=== PATIENT | male | born 1965 | race Caucasian/White ===

== ENCOUNTER 2025-04-06 15:48 | Emergency (ER) | payer MEDICARE, MEDICAID, SELFPAY ==
--- NOTE | ~2025-04-06 | US_ITS ---
US right upper quadrant Indication: pancreatitis Comparison: None Technique: Mtz-scale and color Doppler images were obtained. Findings: LIVER: Mild increased echogenicity of the liver. . GALLBLADDER/BILIARY: Unremarkable.No cholelithiais, wall thickening or pericholecystic fluid. No biliary dilatation. CBD 3.1 mm. [place] sign negative. PANCREAS: Pancreas limited by bowel gas. Right Kidney: Right kidney was not imaged. Impression: Mild hepatic steatosis. Pancreas not well visualized Reviewed, dictated and finalized at location P. Impression: Mild hepatic steatosis. Pancreas not well visualized
--- NOTE | ~2025-04-06 | XR_ITS ---
XR chest 2V HOSTORY: chest pain COMPARISON:[ None] FINDINGS: Frontal and lateral views of the chest were obtained. The lungs are clear. The heart size is normal in size. Pulmonary vasculature is unremarkable. Osseous structures are intact. IMPRESSION: No acute lung findings.] [ ] Reviewed, dictated and finalized at location S.
--- NOTE | 2025-04-06 15:49 | ECG_ITS ---
Test Date: 2025-04-06 15:52:31 Measurements Intervals [place] Rate: 83 P: 66 PA: 133 QRS: 57 QRSD: 149 T: 36 QT: 394 QTc: 465 Interpretive Statements SINUS RHYTHM RIGHT BUNDLE BRANCH BLOCK BASELINE ARTIFACT- I, II, III, AVR, AVL ABNORMAL ECG No previous ECG available for comparison Electronically Signed On 04-06-2025 15:54:31 CDT by Raul Medina D.O.
[2025-04-06 16:04] VITALS: BP 128/82; PULSE 81; RESP 17; TEMP 36.7; O2SAT 98
[2025-04-06 16:31] LABS: Alanine Aminotransferase 32 U/L (6-50); Albumin Level 4.8 g/dL (3.5-5.1); Alkaline Phosphatase 62 U/L (38-126); Anion Gap 10 mmol/L (4-12); Aspartate Amino Transferase 33 U/L (17-59); Bilirubin,Total 0.7 mg/dL (0.2-1.3); Blood Urea Nitrogen 16 mg/dL (9-20); Calcium 9.2 mg/dL (8.4-10.2); Carbon Dioxide 22 mmol/L (22-30); Chloride 102 mmol/L (98-107); Estimated CRCL calculation 133 ml/min; Estimated Glomerular Filt Rate > 60; Glucose 83 mg/dL (65-110); Lipase 1486 U/L (23-300); Potassium 3.9 mmol/L (3.4-5.0); Sodium 134 mmol/L (137-145); Total Protein 8.2 g/dL (6.3-8.2)
[2025-04-06 16:42] LABS: Troponin I < 0.012 ng/mL (0.000-0.034)
[2025-04-06 16:51] VITALS: PULSE 84
[2025-04-06] MEDS: IPRATROPIUM 0.5 MG/ALBUTEROL SULFATE 2.5 MG (BASE) AMPUL.NEB 3 ML INHALATION (17:17)
[2025-04-06 17:19] VITALS: PULSE 86; RESP 19
[2025-04-06 17:23] VITALS: BP 109/86; PULSE 81; RESP 14; O2SAT 97
[2025-04-06 17:24] VITALS: PULSE 84; RESP 19
[2025-04-06 17:28] LABS: Hematocrit 42.5 % (42.0-52.0); Hemoglobin 14.3 g/dL (14.0-18.0); Immature Granulocyte Percent A 0.2 % (0-0.5); Lymphocytes Absolute Auto 2.67 K/mm3 (0.9-3.2); Mean Corpuscular HGB Conc 33.6 g/dl (32-36); Mean Corpuscular Hemoglobin 32.4 pg (26-34); Mean Corpuscular Volume 96.2 fl (80-100); Nucleated Red Blood Cells Absolute Auto 0.000 K/mm3 (0.0-0.012); Nucleated Red Blood Cells Perc 0.0 % (0.0-0.2); Platelet Count Result 226 k/mm3 (150-375); Red Blood Count 4.42 M/mm3 (4.6-6.20); White Blood Count 8.5 K/mm3 (4.5-10.0)
[2025-04-06 17:39] LABS: INR 0.9; Partial Thromboplastin Time 22.9 Seconds (22.3-36.8); Prothrombin Time 12.8 Seconds (11.1-14.7)
--- NOTE | 2025-04-06 18:39 | ECG_ITS ---
Test Date: 2025-04-06 18:51:31 Measurements Intervals [place] Rate: 71 P: 65 NC: 138 QRS: 72 QRSD: 145 T: 32 QT: 413 QTc: 451 Interpretive Statements SINUS RHYTHM RIGHT BUNDLE BRANCH BLOCK BASELINE ARTIFACT- I, II, AVR ABNORMAL ECG Compared to ECG 04/06/2025 15:52:31 No significant changes Electronically Signed On 04-07-2025 05:08:05 CDT by Raul Medina D.O.
--- NOTE | 2025-04-06 19:08 | ED_ITS ---
HPI - General Adult General Chief complaint: Chest Pain Stated complaint: chest/jaw pain Time Seen by Provider: 04/06/25 16:44 History of Present Illness HPI narrative: Patient is a 59-year-old male who presents ER with reports of chest pain and tightness. Sudden onset while he was getting shoulder injections. The he thought he might be in atrial fibrillation again so he came to the ER. [place] mild radiation to the shoulder/jaw. No fevers or chills sweats. No exertional dyspnea. He does have history of COPD and has nebulizer at home feels like he may need treatment. No productive cough. No history of OK. Related Data Allergies Allergy/AdvReac Type Severity Reaction Status Date / Time No Known Allergies Allergy Verified 04/06/25 16:06 Review of Systems 2 Review of Systems: All systems reviewed & are unremarkable except as noted in HPI and below Constitutional: Constitutional: Reports no additional constitutional complaints ENT: Reports system reviewed and no additional complaints, except as documented Cardiovascular: Cardiovascular: Reports no additional cardiovascular complaints Respiratory: Respiratory: Reports no additional respiratory complaints Gastrointestinal: Gastrointestinal: Reports no additional gastrointestinal complaints Musculoskeletal: Musculoskeletal: Reports no additional musculoskeletal complaints [facility] Past Medical History Medical History (Updated 04/06/25 @ 20:16 by Jarred Hardy MD) Atrial fibrillation COPD (chronic obstructive pulmonary disease) Exam 2 Narrative: GENERAL: Well-appearing, well-nourished, and in no acute distress. HEAD: Normocephalic, atraumatic. EYES: PERRL and EOMI. ENT: Mucous membranes moist. CHEST: Clear to auscultation. No respiratory distress. HEART: Regular rate and rhythm. Normal peripheral pulses. ABDOMEN: Soft, nontender, nondistended. EXTREMITIES: Normal range of motion. No edema. SKIN: Warm, dry, no rash. NEURO: Alert and oriented x3. PSYCH: Normal mood and affect. Course Course Emergency Course: Patient with elevated lipase. He has no epigastric pain is had no pain with eating or drinking today. He has had no nausea vomiting. He denies alcohol use. He does feel improved in his chest after receiving a nebulizer treatment. His lungs are now clear. I have discussed pancreatitis and possible hospitalization. Because he is having no pain and no vomiting and does not wish to stay I think it is reasonable for him to go home. We have discussed a clear liquid diet over the next couple days as well as return precautions including pain, vomiting, and fever. Vital Signs Vital signs: Vital Signs Temperature 98.1 F 04/06/25 16:04 Pulse Rate 81 04/06/25 16:04 Respiratory Rate 17 04/06/25 16:04 Blood Pressure 128/82 04/06/25 16:04 Pulse Oximetry 98 04/06/25 16:04 Temperature 98.1 F 04/06/25 16:04 Pulse Rate 84 04/06/25 17:24 Respiratory Rate 19 04/06/25 17:24 Blood Pressure 109/86 04/06/25 17:23 Pulse Oximetry 97 04/06/25 17:23 Medical Decision Making Vital Signs Vital Signs: Vital Signs Temperature 98.1 F 04/06/25 16:04 Pulse Rate 81 04/06/25 16:04 Respiratory Rate 17 04/06/25 16:04 Blood Pressure 128/82 04/06/25 16:04 Pulse Oximetry 98 04/06/25 16:04 Temperature 98.1 F 04/06/25 16:04 Pulse Rate 84 04/06/25 17:24 Respiratory Rate 19 04/06/25 17:24 Blood Pressure 109/86 04/06/25 17:23 Pulse Oximetry 97 04/06/25 17:23 Lab Data Lab results reviewed: Yes I reviewed the patient's lab results. 04/06/25 17:21 04/06/25 16:03 Labs: Lab Results 04/06/25 04/06/25 04/06/25 Range/Units 16:03 17:21 18:47 WBC 8.5 (4.5-10.0) K/mm3 RBC 4.42 L (4.6-6.20) M/mm3 Hgb 14.3 (14.0-18.0) g/dL Hct 42.5 (42.0-52.0) % MCV 96.2 (80-100) fl MCH 32.4 (26-34) pg MCHC 33.6 (32-36) g/dl RDW 12.3 (11.5-14.5) % Plt Count 226 (150-375) k/mm3 MPV 8.9 (7.4-10.4) fl Immature Gran % (Auto) 0.2 (0-0.5) % Neut % (Auto) 58.2 (45.5-73.1) % Lymph % (Auto) 31.4 (18.3-44.2) % [place] % (Auto) 8.7 H (2.6-8.5) % Eos % (Auto) 0.9 (0-4.4) % Baso % (Auto) 0.6 (0.2-1.2) % Lymph # (Auto) 2.67 (0.9-3.2) K/mm3 [place] # (Auto) 0.7 H (0.1-0.6) K/mm3 Eos # (Auto) 0.1 (0-0.3) K/mm3 Baso # (Auto) 0.1 (0.0-0.1) K/mm3 Abs Immat Gran (auto) 0.02 (0.00-0.031) K/mm3 Absolute Neuts (auto) 4.9 (1.3-6.7) K/mm3 Absolute Nucleated RBC 0.000 (0.0-0.012) K/mm3 Nucleated RBC % 0.0 (0.0-0.2) % PT 12.8 (11.1-14.7) Seconds INR 0.9 APTT 22.9 (22.3-36.8) Seconds Sodium 134 L (137-145) mmol/L Potassium 3.9 (3.4-5.0) mmol/L Chloride 102 (98-107) mmol/L Carbon Dioxide 22 (22-30) mmol/L Anion Gap 10 (4-12) mmol/L BUN 16 (9-20) mg/dL Creatinine 0.62 L (0.7-1.3) mg/dL Estim Creat Clear Calc 133 ml/min Estimated GFR > 60 (59 - ) Glucose 83 (65-110) mg/dL Calcium 9.2 (8.4-10.2) mg/dL Total Bilirubin 0.7 (0.2-1.3) mg/dL AST 33 (17-59) U/L ALT 32 (6-50) U/L Alkaline Phosphatase 62 (38-126) U/L Troponin I < 0.012 < 0.012 (0.000-0.034) ng/mL Total Protein 8.2 (6.3-8.2) g/dL Albumin 4.8 (3.5-5.1) g/dL Lipase 1486 H (23-300) U/L Imaging Data Radiologist's impression: ITS Impressions Chest X-Ray 04/06/25 16:24 IMPRESSION: No acute lung findings.] [ ] Upper Quadrant Ultrasound 04/06/25 17:38 Impression: Mild hepatic steatosis. Pancreas not well visualized ECG Data EKG #1: Attestation: I personally reviewed and interpreted this ECG as follows: ECG completion date: 04/06/25 ECG completion time: 18:51 EKG Interpretation: normal rate (71), sinus rhythm, non-specific ST changes, widened QRS and RBBB Discharge Plan Discharge Clinical Impression: Pancreatitis, COPD (chronic obstructive pulmonary disease), Chest pain Patient Disposition: Home Condition: Stable Instructions: Pancreatitis (ED), Biliary Colic (ED) Additional Instructions: Return to the emergency department if you develop severe abdominal pain, severe nausea and vomiting to the point where you are unable to keep down fluids, if you develop chest pain or difficulty breathing, blood in your stool, dizziness or fainting, or if you develop any other new or concerning symptoms as these could be signs of more serious medical illness. Try to stay well hydrated. Adhere to a clear liquid diet for the next 2 days. Avoid fatty foods and follow up with your PCP. Patient Language: Djib[place]ian Follow-up/Referrals: Moose,Sulema Fernandez APRN [Primary Care Provider, Unknown] - 1 Week
[2025-04-06 19:14] LABS: Troponin I < 0.012 ng/mL (0.000-0.034)
--- OUTSIDE RECORDS SUMMARY | 2025-04-06 19:57 | XMS_ITS | Clinical Summary ---
Author Organization [facility] Address [address] [place] [address] Care Team Providers Care Geotechnical Laboratory Technician Name Role Phone Unavailable Primary Care Provider Unavailabl e Social History Tobacco Use Types Packs/Day Years Used Date Smoking Tobacco: Never Assessed Sex and Gender Information Value Date Recorded Sex Assigned at Not on file Legal Sex Male 7:35 AM CDT Gender Identity Not on file Sexual Orientation Not on file Plan of Treatment Health Maintenance Due Date Last Done Comments Colorectal Cancer Screening Colonoscopy (10 Years) 1965 Annual Physical 1968 Hepatitis C 11/30/1983 DTaP, Tdap and Td Vaccines ( 1 - Tdap) 1984 Pneumococcal Vaccine: 50+ Ye ars (1 of 1 - PCV) 11/30/2015 Zoster Vaccines (1 of 2) 11/30/2015 COVID-19 Vaccine (1 - 2023-2 5 season) 2025 Influenza Adult (#1) 2025 Meningococcal B Vaccine Aged Out No l onger eligible based on patient's age to complete this topic Meningococcal Vaccine Aged Out No pilar bennett eligible based on patient's age to complete this topic RSV Immunizations Under 20 Months Aged Out No longer eligible based on patient's age to complete this topic
--- OUTSIDE RECORDS SUMMARY | 2025-04-06 19:57 | XMS_ITS | Clinical Summary ---
Author Organization [facility] Address [address] [place] [address] Care Team Providers Care Development Chemist Name Role Phone Provider, No Pcp Primary Care Provider Unavailab le Source Comments [facility],non-owned Affiliates and Associated Physician Practices is amultiple site organization consisting of ambulatory clinics and hospital sitesin [place], [place], [place] and [place]. This disclosure is being madepursuant to the Care Everywhere program and may not contain all information available regarding this patient. Last updated 18.[facility] Allergies No known active allergies Social History Tobacco Use Types Packs/Day Years Used Date Smoking Tobacco: Never Assessed Sex and Gender Information Value Date Recorded Sex Assigned at Not on file Legal Sex Male 11:20 AM AMERICAN HISTORY PROFESSOR Gender Identity Not on file Sexual Orientation Not on file Last Filed Vital Signs Vital Sign Reading Time Taken Comments Blood Pressure 102/66 07/03/2024 11:22 AM AMERICAN HISTORY PROFESSOR Pulse 78 07/03/2024 12:19 PM AMERICAN HISTORY PROFESSOR Temperature 36.3 C (97.3 F) 07/03/2024 11:22 AM AMERICAN HISTORY PROFESSOR Respiratory Rate 19 07/03/2024 12:19 PM AMERICAN HISTORY PROFESSOR Oxygen Saturation 96% 07/03/2024 12:19 PM AMERICAN HISTORY PROFESSOR Inhaled Oxygen Concentration - - Weight 113.4 kg (250 lb) 07/03/2024 11:29 AM AMERICAN HISTORY PROFESSOR Height 177.8 cm (5' 10) 07/03/2024 11:29 AM AMERICAN HISTORY PROFESSOR Body Mass Index 35.87 07/03/2024 11:29 AM AMERICAN HISTORY PROFESSOR Plan of Treatment Health Maintenance Due Date Last Done Comments COLOGUARD (AGES 45-75) - COL ON CA SCREENING 1965 COLON MONITORING 1965 COLONOSCOPY - COLON CA SCREENING 1965 CT COLONOGRAPHY - COLON CA SCREENING 1965 Colorectal Cancer Screening 1965 FIT - COLON CA SCREENING 1965 FLEX SIG - COLON CA SCREENING 1965 HEPATITIS C SCREENING 11/25/1983 DTAP/TDAP/TD VACCINES (1 - Tdap) 1984 HEPATITIS B VACCINE (1 of 3 - 19+ 3-dose series) 1984 PNEUMOCOCCAL VACCINE 50+ (1 of 1 - PCV) 11/30/2015 ZOSTER VACCINE (1 of 2) 11/30/2015 DEPRESSION SCREENING 06/16/2024 MEDICARE AWV CALENDAR YEAR 2024 COVID-19 VACCINE (1 - 2023-2 5 season) 2025 INFLUENZA VACCINE (#1) 2025 LIPID TESTING 07/01/2027 07/01/2022, 04/10/2022 HIV SCREENING Completed 07/01/2022 HIB VACCINE Aged Out No longer eligi ble based on patient's age to complete this topic HPV VACCINE Aged Out No longer eligi ble based on patient's age to complete this topic MENINGOCOCCAL (Group B) VACCINE SHARED DECISION-MAKING Aged Out No longer eligible based on patient's age to complete this topic MENINGOCOCCAL GROUPS A/C/Y/W VACCINE Aged Out No longer eligible b ased on patient's age to complete this topic Insurance MEDICAID - [place] UHC MANAGED MEDICARE ADV Care Teams Development Chemist Relationship Specialty Start Date End Date Provider, No Pcp PCP - General 07/03/24
--- OUTSIDE RECORDS SUMMARY | 2025-04-06 19:58 | XMS_ITS | Patient Health Record ---
Author Organization [facility] Address [address] [place] [id number] Care Team Providers Care Automatic Driller And Reamer Name Role Phone Kaylie Avendano Primary Care Provider Maribel AVENDANO Unavailable Unavailable Allergies Allergen (clinical drug ingredient) Drug/Non Drug Allergy documented on EMR Reaction Allergy Type Onset Date Status codeine Codeine Unknown Drug Allergy Active Reason For Referral No Information Medications Medication SIG (Take, Route, Frequency, Duration) Notes Start Date End Date Status Triamcinolone Acetonide 0.1 % 1 application Externally Two times a Week 11/26/2021 Active Lidocaine 5 % 1 patch remove after 12 hours Externally Once a day; Duration: 30 days 02/27/2022 Active Levalbuterol Tartrate 45 MCG/ACT 1 puff as needed Inhalation every 4 hrs 06/25/2021 Active Naproxen 500 MG 1 tablet with food o r milk as needed Orally every 12 hrs; Duration: 90 days 12/21/2021 Active Albuterol Sulfate HFA 108 (90 Base) MCG/ACT INHALE 1 PUFF BY INHALATION EVERY 4 HOURS Active Breztri Aerosphere 160-9-4.8 MCG/ACT INHALE 2 PUFFS BY MOUTH TWICE DAILY FOR 90 DAYS; Duration: 90 Active Levalbuterol HCl 1.25 MG/3ML INHALE 3 ML VIA NEBULIZER EVERY 8 HOURS; Duration: 90 Active Azithromycin 250 MG 2 tablets on the , then 1 tablet daily for 4 days Orally Once a day; Duration: 5 day(s) 04/27/2021 Not-Taking predniSONE 20 mg 2 tablet Orally Once a day 04/27/2021 Active Combivent Respimat 120 inh 1 inh 4 times daily; max 6 inh/day Inhaler 4g 1 inh 4 times daily Not-Takin g Azithromycin 250 MG 2 tabs day 1 then 1 tab days 2-7 Orally Once a day; Duration: 7 days 09/16/2021 Active Ventolin HFA 108 (90 Base) MCG/ACT 1 puff as needed Inhalation every 4 hrs; Duration: 90 days 05/23/2021 Not-Takin g Montelukast Sodium 10 MG 1 tablet Orally Once a day; Duration: 90 days 08/09/2021 Active Diclofenac Sodium 3 % APPLY EXTERNALLY T O THE AFFECTED AREA TWICE DAILY NEEDED Externally as needed on infected area; Duration: 30 days Active Methocarbamol 750 MG 1 tablet Orally fou r times a day (qid); Duration: 90 days Active Ibuprofen 800 MG 1 tablet with food o r milk as needed Orally Three times a day; Duration: 30 days 08/09/2021 Active Levocetirizine Dihydrochloride 5 MG 1 tablet in the evening Orally Once a day; Duration: 30 day(s) Active Gabapentin 300 MG TAKE 1 CAPSULE BY MOUTH TWICE DAILY NEEDED; Duration: 30 Active Social History Tobacco Use: Social History Observation Description Date Details (start date - stop date) Former Smoker NA - NA Smoking: Question Answer Notes Are you a: Former Smoker How long has it been since you last smoked? 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: ornamental painter Hx of drug use/abuse Problems Problem Type SNOMED Code ICD Code Onset Dates Problem Status W/U Status Risk Notes Problem Essential hypertension (73467575) Essential hypertension (I10) Active confirmed Problem Arthritis (6650110) Arthritis (M19.90) Active confirmed Problem Dyslipidemia (763536154) Dyslipidemia (E78.5) Active confirmed Problem Chronic hepatitis C (364122864) Chronic hepatitis C without hepatic coma (B18.2) Active confirmed Problem COPD - Chronic obstructive pulmonary disease (10047603) Chronic obstructive pulmonary disease, unspecified COPD type (J44.9) Active confirmed Problem Uncomplicated moderate persistent asthma (785423891) Moderate persistent asthma without complication (J45.40) Active confirmed Plan Of Treatment Pending Test Test Name Order Date EKG 01/08/2022 Insurance Providers Payer Name Payer Address Payer Phone Subscriber Number Group Number Insured Name Patient Relationship to Insured Coverage Start Date Coverage End Date [employer] [facility] [address] [address] [place] [id number] [phone] [id number] Jones Skelton Self - patient is the insured Medications Administered Medication Instructions Date of Administration Dosage Notes CEG DEPO MEDROL 40 MG 09/16/2021 40 mg CEG DEXAMETHAZONE 4MG 09/16/2021 4 mg CEG LINCOCIN 300MG 09/16/2021 300 mg CEG ROCEPHIN 1GM 07/28/2021 1 mg dexamethasone INJECTION 07/28/2021 10 mg Medical (General) History Medical History History ICD Code HTN Asthma COPD Prediabetic Obesity Eczema Surgical History Surgery Date(Month/Year) right hand Hospitalization History Reason Date(Month/Year) Pneumonia
--- OUTSIDE RECORDS SUMMARY | 2025-04-06 19:58 | XMS_ITS | Clinical Summary ---
Author Organization [facility] Address [address] [place] [id number] Care Team Providers Care Bending Machine Set Up Operator Name Role Phone No, Physician Primary Care Provider [phone] Allergies No known active allergies Medications triamcinolone (KENALOG) 0.1 % cream Apply 1 g topically 2 (two) times a day 0 Active traMADoL (ULTRAM) 50 mg tablet Take 1 tablet (50 mg total) by mouth every 6 (six) hours as needed Active hydroCHLOROthia zide 12.5 mg tablet Take 1 tablet (12.5 mg total) by mouth daily Active lisinopriL (PRINIVIL,ZESTR [place]) 10 mg tablet Take 1 tablet (10 mg total) by mouth daily Active metoprolol XL (TOPROL-XL) 50 mg extended release tablet Take 1 tablet (50 mg total) by mouth every morning Active apixaban (ELIQUIS) 5 mg tablet Take 1 tablet (5 mg total) by mouth 2 (two) times a day 3 Active dilTIAZem XR (dilTIAZem CD) 240 mg 24 hr capsule Take 1 capsule (240 mg total) by mouth with lunch 4 Active budesonide/glyc opyr/formoterol (BREZTRI AEROSPHERE INHAL) Inhale 2 puffs 2 (two) times a day Active albuterol HFA (PROVENTIL HFA,VENTOLIN HFA,PROAIR HFA) 90 mcg/actuation inhaler Inhale 2 puffs every 4 (four) hours as needed Active albuterol 1.25 mg/3 mL nebulizer solution Take 3 mL (1.25 mg total) by nebulization 2 (two) times a day 3 Active Voltaren Arthritis Pain 1 % gel Apply topically as needed 3 Active chlorhexidine (PERIDEX) 0.12 % oral rinse Apply 15 mL to the mouth or throat nightly Active lidocaine (ASPERCREME) 4 % adhesive patch,medicated Place 1 patch on the skin every 12 (twelve) hours Active nitroglycerin (NITROSTAT) 0.[address] 1 tablet (0.4 mg total) under the tongue every 5 (five) minutes as needed 2 Active oxyCODONE-aceta minophen (PERCOCET) 5-325 mg per tablet Take 1 tablet by mouth every 6 (six) hours as needed 5 Active Active Problems Problem Noted Date Diagnosed Date Atrial fibrillation and flutter 10/26/2024 A-fib 08/25/2024 Dyspnea on exertion 04/21/2024 Moderate chronic obstructive pulmonary disease 1 06/21/2023 Chronic obstructive pulmonary disease, unspecifi ed 02/04/2024 Vitamin D deficiency 12/23/2023 Osteoarthritis 12/23/2023 Arthralgia of multiple joints 08/05/2023 Hypertension, benign 07/14/2023 Prediabetes 03/10/2023 Lung nodules 03/10/2023 Palpitations 10/21/2022 Overview (08/26/2024): On metoprolol. Declined ACT monitor: 10/21/2022. RBBB (right bundle branch block) 09/07/2022 Obstructive sleep apnea 09/07/2022 Stable angina 07/06/2022 Overview (08/26/2024): Last Assessment & Plan: Condition: stable Source of diagnosis: Medication and Diagnosis confirmed from PCP record and currently active Follow up in: three months Morbid (severe) obesity due to excess calories 0 07/06/2022 Overview (08/26/2024): Last Assessment & Plan: Condition: stable Source of diagnosis: Vital Signs and Physical Exam Co-morbidities: Hyperlipidemia and Atrial Fibrillation Follow up in: three months Hyperlipidemia 07/01/2022 Overview (08/26/2024): Last Assessment & Plan: Condition: stable Source of diagnosis: Medication and Diagnosis confirmed from PCP record and currently active Follow up in: three months Coronary artery disease due to lipid rich plaque 07/01/2022 Overview (08/26/2024): CT coronary arteries ([facility]): 04/10/2022 - calcium score = 723, non- obstructive CAD involving LAD + first obtuse marginal. Psoriasis 04/22/2022 Overview (08/26/2024): Last Assessment & Plan: Condition: stable Member advised to use topical medications as prescribed and also was instructed on using unscented thick moisturizing creams and ointments to keep the skin from getting too dry. Jones encouraged to alert PCP to worsening of condition and keep all scheduled follow up appointments. Follow up in: three months Asthma, moderate 04/22/2022 Overview (08/26/2024): (History of) Arthritis 04/22/2022 Overview (08/26/2024): Last Assessment & Plan: Condition: symptomatic Source of diagnosis: Vital Signs and Medication Follow up in: three months Chronic hepatitis C 10/10/2021 Surgical History Surgery Date Site/Laterality Comments HERNIA REPAIR HAND SURGERY aprox 12 surgeries CYST REMOVAL CARDIAC ELECTROPHYSIOLOGY PROCEDURE 10/26/2024 N/A Procedure: ABLATION ATRIAL FIBRILLATION (A-FIB) VIA PULMONARY VEIN ISOLATION 50809; Surgeon: Rita Awad MD; Location: [facility]; Service: Cardiovascular; Laterality: N/A; Medical History Medical History Date Comments Asthma COPD (chronic obstructive pulmonary disease) A-fib (HCC) Hypertension Lung disease Hepatitis C treated Social History Tobacco Use Types Packs/Day Years Used Date Smoking Tobacco: Former Cigarettes Smokeless Tobacco: Never Tobacco Cessation:Counseling Given: Not Answered AUDIT-C Answer Date Recorded Q1: How often do you have a drink containing alc ohol? Never 12/29/2024 Q2: How many drinks containi ng alcohol do you have on a typical day when you are drinking? 1 or 2 12/29/2024 Q3: How often do you have six or more drinks on one occasion? Never 12/29/2024 Personal Safety Answer Date Recorded Have you ever been in or are you currently in a harmful physical or emotional relationship or is someone making you feel afraid or unsafe? Denies 10/26/2024 Sex and Gender Information Value Date Recorded Sex Assigned at Not on file Legal Sex Male 12:44 PM CDT Gender Identity Not on file Sexual Orientation Not on file Obstetrics History Last Filed Vital Signs Vital Sign Reading Time Taken Comments Blood Pressure 102/70 12/29/2024 2:54 PM CDT Pulse 82 12/29/2024 2:54 PM CDT Temperature 36.4 C (97.5 F) 10/27/2024 8:08 AM CDT Respiratory Rate 18 10/27/2024 3:27 AM CDT Oxygen Saturation 97% 10/27/2024 8:08 AM CDT Inhaled Oxygen Concentration - - Weight 110.7 kg (244 lb) 12/29/2024 2:54 PM CDT Height 175.3 cm (5' 9) 12/29/2024 2:54 PM CDT Body Mass Index 36.03 12/29/2024 2:54 PM CDT Plan of Treatment Health Maintenance Due Date Last Done Comments Colon Cancer Screening-Colonoscopy 1965 Depression Screening 1965 Prostate Cancer Screening-PSA 1965 DTaP/Tdap/Td Vaccine (1 - Tdap) 1976 Hepatitis B Screening 11/30/1983 Regular Well Visit/Exam 18-64 11/30/1983 Pneumococcal vaccine <65 (1 of 2 - PCV) 1984 Zoster Vaccine (1 of 2) 11/30/2015 Influenza Vaccine (#1) 2025 Hepatitis C Screening Completed 10/10/2021 Insurance [facility] MEDICARE ADVANTAGE MEDICARE ADVANTAGE IDPA Advance Directives For more information, please contact: [phone] * Full Code (Latest Code Status on File) Date Activated Date Inactivated Comments 10/27/2024 7:19 AM 10/27/2024 2:10 PM Care Teams Bending Machine Set Up Operator Relationship Specialty Start Date End Date No, Physician PCP - General 12/13/23
--- OUTSIDE RECORDS SUMMARY | 2025-04-06 19:58 | XMS_ITS | Encounter Summary ---
Author Organization [facility] Healthcare Address [address] [place] [id number] Care Team Providers Care Quilting Supervisor Name Role Phone No, Physician Primary Care Provider Encounter Details Date Type Department Care Team (Late st Contact Info) Description 11/09/2024 [facility] Post Discharge Follow up phone call [address] [id number] Birdie Kendrick Social History Tobacco Use Types Packs/Day Years Used Date Smoking Tobacco: Former Cigarettes Smokeless Tobacco: Never AUDIT-C Answer Date Recorded Q1: How often do you have a drink containing alc ohol? Monthly or less 10/26/2024 Q2: How many drinks containi ng alcohol do you have on a typical day when you are drinking? 1 or 2 10/26/2024 Q3: How often do you have si x or more drinks on one occasion? Never 10/26/2024 Personal Safety Answer Date Recorded Have you ever been in or are you currently in a harmful physical or emotional relationship or is someone making you feel afraid or unsafe? Denies 10/26/2024 Sex and Gender Information Value Date Recorded Sex Assigned at Not on file Legal Sex Male 12:44 PM CDT Gender Identity Not on file Sexual Orientation Not on file documented as of this encounter Plan of Treatment Not on file documented as of this encounter Visit Diagnoses Not on filedocumented in this encounter Care Teams Quilting Supervisor Relationship Specialty Start Date End Date No Physician PCP - General 12/13/23 documented as of this encounter
--- OUTSIDE RECORDS SUMMARY | 2025-04-06 19:58 | XMS_ITS | Data Portability ---
Author Organization [place] [facility] [employer], Main Office Address [address] [place] [address] Assessment Encounter Date Assessment Date Assessment LastModified by Organization Details LastModified Time 04/22/2024 04/22/2024 Assessment: IgE 2207 IU/mL Multiple environmental allergies (+) Aspergillus fumigatus IgE Nicotine smoke: 1 ppd 9525-5070 = 45 pack years Mod ACO Atrial fibrillation Plan: The following were reviewed and explained to the patient: Lab data 01/29/24 high IgE, multiple environmental allergies PFT 03/31/24 FEV1 2.27 L (66%), BD 310 mL = 16%, TLC 6.10 L (95%), RV 3.01 L (133%), DLCO 85% Chest CT 03/31/24 no nodules, (+) emphysema Referral to Dr. Shantel Barriga at [address] [place] [address], [place] [address] TEL for further evaluation and treatment of high IgE, multiple environmental allergies and (+) Aspergillus fumigatus IgE. The [employer] [employer] recommends annual screening for lung cancer with low-dose computed tomography (LDCT) for people aged 50 to 80 years old who smoke or formerly smoked and have a 20-year or greater pack-year history. Screening is no longer discontinued even when a person has not smoked for 15 years. Advised to continue not to smoke. Continue Albuterol HFA as needed. Continue Breztri aerosphere 160/9/4.8 mcg 2 puffs BID. Gargle after use. The patient does not know how to accurately administer the inhalers. Today, the patient was shown how to take these medications. The proper technique for delivering these medications was instructed. The patient expressed a clear understanding and demonstrated back how to use these medications. Without the proper technique, the patient will not reap the benefits of these medications as the contents will not reach the lower airways as intended to be. Adherence to therapy is advocated. Nonadherence may lead to treatment failure, further progression of the condition, and other complications. Hospitals admissions are often the result of individuals not taking prescription medications accurately. Alternatively, greater adherence to medication regimens have shown to lower rates of hospitalization and decrease total medical costs in patients with chronic medical conditions. Advocated influenza vaccination annually and pneumonia vaccination ROSIO. Advocated weight loss through diet and exercise. Patient's ideal body weight according to height and gender is up to 175 lbs. Encouraged patient to adjust caloric intake to maintain/achieve ideal body weight, emphasizing on fruits, vegetables, whole grains, and fat-free or low-fat products. These include lean meats, poultry, fish, beans, eggs, and nuts and foods that are low in saturated fats, trans-fats, cholesterol, salt (sodium), and glycemic index. Stressed the importance of regular exercise up to the patient's capacity limits. In this case, we recommend 20 min daily walking, 2 days a week of resistance training. Patient to monitor BP daily and bring records to PCP for further management. 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 Lab ceruloplas min, serum [address] [facility], [address] [place], [address], 08:08:16 smooth muscle Ab, quant, serum [address] [facility], [address] [place], [address], 08:08:26 mitochondr ial M2 igg Ab, serum [address] [facility], [address] [place], [address], 08:08:34 hepatitis C virus RNA, quant, PCR, serum or plasma [address] [facility], [address] [place], [address], 4 08:09:13 alpha-1-an titrypsin (aat), QN, serum [address] [facility], [address] [place], [address], 08:08:47 hepatitis C genotype, serum or plasma [address] [facility], [address] [place], [address], 08:09:21 liver fibrosis score panel, calculated by FIB4 [address] [facility], [address] [place], [address], 08:08:59 hepatic function panel, serum 2023 [facility], [address] [place], [address], 09:08:00 CBC [address] [facility], [address] [place], [address], 08:11:06 PSA, serum or plasma [email or web address] 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 2023 024 [email or web address] 2 Rosario Barriga, [address], [place], [address], 08:19:17 orthopedic surgeon referral - Patient would like 2nd opinion regarding bilateral shoulder pain/osteo arthritis. 2023 024 [email or web address] 2 Sudeep Davidson MD, [address], [address], [place], [address], 09:39:25 Procedures None recorded. Surgeries None recorded. Imaging None recorded. Medication Orders albuterol sulfate HFA 90 mcg/actuat ion aerosol inhaler 2024 025 [facility]93856, [address] [place], [place], [id number], 5 16:06:42 Breztri Aerosphere 160 mcg-9mcg-4 .8mcg/actu ation HFA aerosol inhaler 2024 025 [facility]40421, [address] [place], [place], [id number], 5 16:06:31 Voltaren Arthritis Pain 1 % topical gel 2024 025 [facility]47376, [address] [place], [place], [id number], 5 16:06:31 tramadol 50 mg tablet 2024 025 [facility] #87480, [address] [place], [place], [id number], 5 16:06:35 azithromyc in 250 mg tablet 2024 025 [email or web address] [facility] #72871, [address] [place], [place], [id number], 5 07:54:28 furosemide 20 mg tablet [address] [facility] #12716, [address] [place], [place], [id number], 5 16:06:33 Toprol XL 50 mg tablet,ext ended release [address] [facility] #07129, [address] [place], [place], [id number], 5 16:06:31 diltiazem CD 240 mg capsule,ex tended release 24 hr [address] [facility] #65779, [address] [place], [place], [id number], 5 16:06:30 apixaban 5 mg tablet [address] [facility] #15845, [address] [place], [place], [id number], 5 16:06:29 nitroglyce rin 0.4 mg sublingual tablet [address] [facility] #35434, [address] [place], [place], [id number], 5 16:50:12 Breztri Aerosphere 160 mcg-9mcg-4 .8mcg/actu ation HFA aerosol inhaler [address] [facility] #12192, [address] [place], [place], [id number], 5 16:50:21 albuterol sulfate HFA 90 mcg/actuat ion aerosol inhaler [address] [facility] #06224, [address] [place], [place], [id number], 5 16:50:12 tramadol 50 mg tablet [address] [facility] #46747, [address] [place], [place], [id number], 5 16:50:18 Breztri Aerosphere 160 mcg-9mcg-4 .8mcg/actu ation HFA aerosol inhaler [address] [facility] #23686, [address] [place], [place], [id number], 4 17:46:18 albuterol sulfate HFA 90 mcg/actuat ion aerosol inhaler [address] [facility] #58135, [address] [place], [place], [id number], 4 17:46:19 montelukas t 10 mg tablet 2023 024 [facility] #44329, [address] [place], [place], [id number], 5 16:47:45 Voltaren Arthritis Pain 1 % topical gel [address] [facility] #61658, [address] [place], [place], [id number], 4 13:01:17 Breztri Aerosphere 160 mcg-9mcg-4 .8mcg/actu ation HFA aerosol inhaler [address] [facility] #07307, [address] [place], [place], [id number], 12:49:53 triamcinol one acetonide 0.1 % topical cream 2023 024 [email or web address] [facility] #43765, [address] [place], [place], [id number], 07:54:47 Patient TargetsNo targets recorded. Patient Instructions Encounter Date Encounter Id Patient Instructions Last Modified By Organization Details Last Modified Time 03/23/2024 [id number] dementia rating scale-2* Not available 03/23/2024 12:41:12 alcohol misuse* [email or web address] Not available 03/23/2024 12:41:24 depression screening* [email or web address] Not available 03/23/2024 12:41:37 Timed Up and Go test (TUG)* [email or web address] Not available 03/23/2024 12:41:51 multi-dimensiona l health assessment questionnaire* Not available 03/23/2024 13:53:58 advance directiv es: care instructions Not available 03/23/2024 13:53:58 [place] Advance Directives Not available 03/23/2024 13:53:58 advance care planning: care instructions Not available 03/23/2024 13:53:58 Follow up in 4 months Prescriptions sent to pharmacy Obtain labs Tests: Referral: Recommend: Personalized Health Plan and Screening Recommendations Advance Directives - Do you have one? No You have indicated that you are capable of preparing your advance care directive Advance Directives - Do we have your advance directive on file in your health record? No, please bring in a copy at your earliest convenience Primary Prevention/Interven tion (prevents or decreases the chance of common diseases from occurring) Smoking Risk: Non Smoker Alcohol Misuse Screening: Negative Weight: Overweight try to lose 10% of your body weight Physical activity: Need more exercise/physical activity minimum of 20-30 minutes activity that causes mild breathlessness/day Nutrition: Average Refer to attached handout Heart-Healthy Diet: After Your Visit Fall Risk (screened today): Intermediate Refer to attached handout Preventing Falls: After your Visit Vaccines Pneumococcal: Recommended today, but you have declined Influenza: Recommended today, but you have declined Chronic Disease Risks Stroke: Intermediate Risk Follow Heart healthy Diet. Heart Attack: Intermediate Risk Follow Heart healthy Diet. Clogging of the Arteries: Intermediate Risk Follow Heart healthy Diet. Diabetes: High Risk Drastically limit sugar and products made with any type of flour (bread, pasta, cereal, cookies, crackers, etc.) Secondary Prevention/Interven tion (detects treatable diseases before they may cause symptoms, disability, or ) Prostate Cancer Screening: Your next PSA Ordered Colon Cancer Screening: Colonoscopy No screening necessary Date Screening Last Performed: __03/22/24 Eye Disease Screening: Recommended today Dementia Risk: Low I have no recommendations Depression Screening: Positive Recommend additional evaluation and/or treatment as noted above [email or web address] Not available 03/23/2024 12:43:56 03/24/2024 [id number] PT WITH CHRONIC . S/P INTERFERON / EPCLUSA TREATMENT . HCV SIGNAL CUT OFF IS HIGH . CONCERNING FOR REAPSE AND RECURRENCE . RECOMMEND TO CHECK MARKERS/ GENOTYPE / HCV RNA LEVEL. F/U IN 4 WEEKS [email or web address] Not available 03/24/2024 14:48:08 07/08/2024 [id number] Follow up in 3 months Prescriptions sent to pharmacy Tests: Referral: Recommend: Pneumococcal vaccine Tetanus vaccine Not available 07/08/2024 16:49:14 08/25/2024 [id number] Follow up in 3 months Obtain labs Tests: Referral: Recommend: Tetanus vaccine Shingles vaccine Not available 08/25/2024 16:04:22 Reason for Referral Orthopedic Surgeon Referral for Bilateral shoulder joint pain Patient would like 2nd opinion regarding bilateral shoulder pain/osteoarthritis. 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 Referring Physician: Joseph Juarez, Pulmonary Disease, Encounter Date: 04/22/2024 Results Created Date Observation Date Name Description Value Unit Range Abnormal Flag Note LastModifiedBy Organization Detail LastModifiedTime 03/02/20 24 02/19/2024 home sleep study No observ ation record ed. [facility] [address], [place], [address], 03/03/2024 08:30:04 03/31/2003/31/2024 LDCT, chest , for lung cance r gui [place] No observ ation record ed. [email or web address] [facility] [address] [place], [address], 04/03/2024 14:33:48 04/05/2003/31/2024 compl ete PFT w/ post [facility] hodil ator gurinder metry * No observ ation record ed. [facility] ([facility] Sched[facility]) [address] [place], [address], 04/21/2024 12:01:33 Result Notes None recorded. Problems Name Problem SNOMED Code Status Onset Date Resolution Date Notes Provider Name and Address Organization Details Recorded Time Essential hypertension 38957312 Active 2023 Sulema Virk APRN [address], [address], [place], [address], [employer] 4 11:39:31 Osteoarthritis 004691428 Active 2023 Sulema Virk APRN [address], [address], [place], [address], [employer] 4 11:40:18 Atrial fibrillation 10854492 Active 2023 Sulema Virk APRN [address], [address], [place], [address], [employer] 4 11:45:08 Hyperlipidemia 90172655 Active 2023 Sulema Virk APRN [address], [address], [place], [address], [employer] 4 11:51:32 Vitamin D deficiency 31174488 Active 2023 Sulema Virk APRN [address], [address], [place], [address], [employer] 4 15:26:17 Prediabetes 703732297 Active 2023 Sulema Virk APRN [address], [address], [place], [address], [facility] [employer] [facility] 4 15:26:03 Ex-smoker 1450834 Active 2023 Joseph Juarez MD [address], [address], [place], [address], [employer] [facility] [employer] [facility] 5 07:56:27 Viral hepatitis C 93034624 Active 2023 Joseph Juarez MD [address], [address], [place], [address], [facility] [employer] [facility] 5 07:56:23 Chronic hepatitis C 916183404 Active 2023 Joseph Juarez MD [address], [address] [facility], [place], [address], [facility] [employer] [facility] 5 07:56:30 Moderate chronic obstructive pulmonary disease 397711687 Active 2023 Joseph Jaurez MD [address], [address], [place], [address], [facility] [employer] [facility] 5 07:56:26 Notes:Medical History: Rhini tis to multiple environmental allergens IgE 2207 IU/mL (+) Aspergillus fumigatus IgE Eosinophils 110/uL AAT PiMM 130 mg% Mod ACO Obesity Atrial fibrillation since 2021 Hypertension Hyperlipidemia Prediabetes Vit D deficiency OA Procedure History: 5 right hand surgeries 0211-0751 Strangulated umbilical herniorrhpahy 2016 Occupational History: [employer] Some problems listed in Document: #[id number] could not be added to this patient's chart. Please review this document and add these problems to the patient's chart manually as needed. Problem Notes None recorded. Procedures Surgical History Date Name Laterality Status Provider Name and Address Organization Details Recorded Time 4 Advanced Care Planning completed Linus Henriquez LPN [facility] [employer] [facility] 03/23/2024 12:39:33 4 Medicare Wellness CPT Code, Initial completed Sulema Virk APRN [address], [address], [place], [address], [facility] [employer] [facility] 03/19/2024 21:55:00 4 Colonoscopy completed Jany Webster [place] [employer] [facility] [employer] [facility] 03/23/2024 11:58:55 4 Medicare Wellness CPT Code, Initial cancelled Sulema Virk APRN [address], [address], [place], [address], [facility] [employer] [facility] [employer] [facility] 02/05/2024 11:56:10 4 Ortho - Cortisone Injection completed Ernesto Sharpe MD [address], [facility] [address], [place], [address], [facility] [employer] [facility] 01/21/2024 09:48:23 Hand completed Jany Webster [place] [employer] [facility] [employer] [facility] 12/23/2023 11:33:55 hernia repair completed Jany Webster [place] [employer] [facility] 12/23/2023 11:34:08 Imaging Results None recorded. Procedure Notes None recorded. Medical Equipment None Reported. Allergies Allergen ID Allergen Name Allergen Category Reaction Reaction Severity Criticality Documentation Date Start Date Code Code System Note Provider Name and Address Organization Details Recorded Time 38335 codeine medicatio n rash severe Not available 12/23/2023 2670 RxNorm Other react ions and sever ities : 'Adve rse react ion to subst ance' . Sulema Virk, PAUL [address], [facility] [address], [place], [address], [facility] [employer] [facility] [employer] [facility] 09:59:24 Medications Name Sig Start Date Stop Date Status Note LastModified by Organization Details LastModified Time atorvastati n 40 mg tablet TAKE 1 TABLET BY MOUTH EVERY DAY DIRECTED 01/12 completed Not Available Not Available Not Available prednisone 10 mg tablet TAKE 4 TABLETS BY MOUTH DAYS 1-3 THEN 3 TABLETS BY MOUTH DAYS 4-5 THEN 2 TABLETS ON DAY 6 AND THEN 1 TABLET BY MOUTH ON DAY 7 12/22 completed Not Available Not Available Not Available ipratropium 0.5 mg-albutero l 3 mg (2.5 mg base)/3 mL nebulizatio n soln INHALE 1 VIAL VIA NEBULIZER EVERY 4 TO 6 HOURS NEEDED active Not Available Not Available No t Available azithromyci n 250 mg tablet TAKE 2 TABLETS BY MOUTH ON DAY 1 THEN TAKE 1 TABLET ON DAYS 2-5 10/11 completed Not Available Not Available Not Available metoprolol succinate ER 50 mg tablet,exte nded release 24 hr TAKE 1 TABLET BY MOUTH EVERY DAY active Not Available Not Available No t Available diltiazem CD 240 mg capsule,ext ended release 24 hr TAKE 1 CAPSULE BY MOUTH DAILY active Not Available Not Available No t Available meloxicam 15 mg tablet TAKE 1 TABLET BY MOUTH EVERY DAY FOR ARTHRITIS PAIN 01/12 completed Not Available Not Available Not Available prednisone 20 mg tablet TAKE 2 TABLETS BY MOUTH ONCE DAILY 01/11 completed Not Available Not Available Not Available tramadol 50 mg tablet TAKE 1 TABLET BY MOUTH THREE TIMES A DAY NEEDED FOR PAIN active Not Available Not Available No t Available triamcinolo ne acetonide 0.1 % topical cream APPLY DIRECTLY TO SKIN FOR ECZEMA active Not Available Not Available No t Available oxycodone-a cetaminophe n 5 mg-325 mg tablet TAKE 1 TABLET BY MOUTH EVERY 6 HOURS NEEDED FOR PAIN active Not Available Not Available No t Available Kenalog 10 mg/mL suspension for injection Take 2 mg by injection route. 04/22 completed Not Available Not Available Not Available benzonatate 100 mg capsule 01/11 completed Not Available Not Available Not Available adenosine 3 mg/mL intravenous solution 6 mg by intraven. route. 07/15 completed Not Available Not Available Not Available lisinopril 10 mg tablet TAKE 1 TABLET BY MOUTH EVERY DAY active Not Available Not Available No t Available nitroglycer in 0.[address] 1 tablet as needed by sublingua l route as directed. active Not Available Not Available No t Available lidocaine HCl 2 % mucosal solution SWISH AND SPIT 5 ML BY MOUTH THREE TIMES DAILY NEEDED TO NUMB 10/11 completed Not Available Not Available Not Available montelukast 10 mg tablet TAKE 1 TABLET BY MOUTH EVERY DAY active Not Available Not Available No t Available mupirocin 2 % topical ointment apply thin layer to affected area 2-4 times daily active Not Available Not Available No t Available furosemide 20 mg tablet TAKE 1 TABLET BY MOUTH EVERY DAY DIRECTED active Not Available Not Available No t Available methylpredn isolone 4 mg tablets in a dose pack TAKE 6 TABLETS ON DAY 1 DIRECTED ON PACKAGE AND DECREASE BY 1 TAB EACH DAY FOR A TOTAL OF 6 DAYS active Not Available Not Available No t Available albuterol sulfate HFA 90 mcg/actuati on aerosol inhaler INHALE 2 PUFFS BY MOUTH EVERY 4 TO 6 HOURS NEEDED active Not Available Not Available No t Available cefdinir 300 mg capsule TAKE 1 CAPSULE BY MOUTH TWICE DAILY 10/11 completed Not Available Not Available Not Available clotrimazol e 1 % topical cream APPLY TO THE AFFECTED AREA TWICE DAILY 01/11 completed Not Available Not Available Not Available amoxicillin 875 mg-potassiu m clavulanate 125 mg tablet TAKE 1 TABLET BY MOUTH TWICE A DAY FOR 7 DAYS active Not Available Not Available No t Available chlorhexidi ne gluconate 0.12 % mouthwash SWISH AND SPIT 10 ML BY MOUTH TWICE DAILY 10/11 completed Not Available Not Available Not Available Metopirone 03/23 completed Not Available Not Available Not Available hydrochloro thiazide 12.5 mg tablet TAKE 1 TABLET BY MOUTH EVERY DAY active Not Available Not Available No t Available Golytely 236 gram-22.74 gram-6.74 gram-5.86 gram oral solution DIRECTED 03/23 completed Not Available Not Available Not Available diclofenac 1 % topical gel APPLY 2 GRAMS TO THE AFFECTED AREA(S) BY TOPICAL ROUTE 4 TIMES PER DAY active Not Available Not Available No t Available Gavilyte-C 240 gram-22.72 gram-6.72 gram-5.84 gram oral solution DIRECTED 03/23 completed Not Available Not Available Not Available Multaq 400 mg tablet TAKE 1 TABLET BY MOUTH TWICE DAILY active Not Available Not Available No t Available ropivacaine (PF) 5 mg/mL (0.5 %) injection solution Take 4 mg by injection route. 04/22 completed Not Available Not Available Not Available Eliquis 5 mg tablet TAKE 1 TABLET BY MOUTH TWICE A DAY active Not Available Not Available No t Available Kapspargo Sprinkle 50 mg capsule,ext ended release TAKE ONE CAPSULE BY MOUTH DAILY 01/12 completed Not Available Not Available Not Available albuterol sulf 90 mcg/actuati on breath activated powder inhaler,sen sor Inhale 2 puffs every 4 hours by inhalatio n route. 04/22 completed Not Available Not Available Not Available Que Aerosphere 160 mcg-9mcg-4. 8mcg/actuat ion HFA aerosol inhaler INHALE 2 PUFFS BY MOUTH TWICE DAILY active Not Available Not Available No t Available aspirin 81 mg capsule Take 1 capsule every day by oral route. 03/23 completed Not Available Not Available Not Available albuterol 90 mcg-budeson sara 80 mcg/actuati on HFA aerosol inhaler Inhale by inhalatio n route. 12/22 completed Not Available Not Available Not Available Vitals Date Recorded Body height Body mass index (BMI) Body weight Body temperature Heart rate Oxygen saturation Oxygen saturation in Arterial blood by Pulse oximetry Systolic And Diastolic Provider Name and Address Organization Details Last Updated DateTime 5 175.26 cm 35.7 kg/m2 971334. 35 g 97.6 [degF] 68 /min 96 % 96 % 118/70 mm[Hg] Jillian Calderón [place] [facility] [facility] [employer] 5 16:25:37 Date Recorded Body height Body mass index (BMI) Body weight Body temperature Heart rate Oxygen saturation Oxygen saturation in Arterial blood by Pulse oximetry Systolic And Diastolic Provider Name and Address Organization Details Last Updated DateTime 5 175.26 cm 35.3 kg/m2 581490. 58 g 97.4 [degF] 70 /min 95 % 95 % 118/74 mm[Hg] DONALD Bansal [facility] [employer] 5 15:51:34 Date Recorded Body height Body mass index (BMI) Body weight Heart rate Oxygen saturation Oxygen saturation in Arterial blood by Pulse oximetry Pain severity - 0-10 verbal numeric rating [Score] - Reported Systolic And Diastolic Provider Name and Address Organization Details Last Updated DateTime 4 175.26 cm 35.5 kg/m2 561651. 96 g 81 /min 95 % 95 % 3 110/68 mm[Hg] Jany Webster [place] [facility] [facility] [employer] 4 11:56:37 Date Recorded Body temperature Provider Name a nd Address Organization Details Last Updated DateTime 03/23/2024 97.8 [degF] Linus Henriquez LPN [facility] 03/23/2024 12:21:11 Date Recorded Body height Body mass index (BMI) Body weight Heart rate Oxygen saturation Oxygen saturation in Arterial blood by Pulse oximetry Systolic And Diastolic Provider Name and Address Organization Details Last Updated DateTime 4 175.26 cm 35.4 kg/m2 967731. 17 g 80 /min 96 % 96 % 112/70 mm[Hg] DONALD Quinn [facility] [employer] 14:23:05 Date Recorded Heart rate Respiratory rate Provider N salo and Address Organization Details Last Updated DateTime 04/22/2024 73 /min 14 /min Joseph Juarez MD [address] [place] [address], [id number], [facility] [employer] 04/22/2024 18:02:48 Date Recorded Body height Body mass index (BMI) Body weight Body temperature Heart rate Oxygen saturation Oxygen saturation in Arterial blood by Pulse oximetry Systolic And Diastolic Provider Name and Address Organization Details Last Updated DateTime 4 175.26 cm 35.3 kg/m2 302782. 58 g 97.8 [degF] 73 /min 98 % 98 % 108/66 mm[Hg] Zahra Vora MA [facility] [employer] 17:11:31 Social History Question Answer Notes LastModified by Organizat ion Details LastModified Time Tobacco Smoking Status Former Smoker Jany Webster MA null, [facility] [employer] [employer] 12/23/2023 11:31:45 Do You Have An Advance Directive? No Information not available 01/29/2024 Is Blood Transfusion Acceptable In An Emergency? Yes [email or web address] Information not available 03/23/2024 What Is Your Level Of Caffeine Consumption? Moderate Information not available 12/23/2023 How Much Tobacco Do You Chew? None Information not available 01/29/2024 In The 14 Days Before Symptom Onset, Have You Had Close Contact With A Laboratory-joseyi rmed COVID-19 While That Case Was Ill? No Information not available 12/23/2023 In The 14 Days Before Symptom Onset, Have You Had Close Contact With A Person Who Is Under Investigation For COVID-19 While That Person Was Ill? No Information not available 12/23/2023 What Type Of Diet Are You Following? REGULAR Information not available 12/23/2023 What Is The Highest Grade Or Level Of School You Have Completed Or The Highest Degree You Have Received? [id number] Information not available 03/23/2024 Do You Have An Electrostatic Air Filter? No Information not available 01/29/2024 How Many Days Of Moderate To Strenuous Exercise, Like A Brisk Walk, Did You Do In The Last 7 Days? 0 [email or web address] Information not available 03/23/2024 Have There Been Any Changes To Your Family Or Social Situation? No Information not available 12/23/2023 What Is The Fluoride Status Of Your Home? Unknown [email or web address] Information not available 03/23/2024 When Did You Quit Smoking? 1-5yearssincelastc igarette Information not available 12/23/2023 Are There Any Guns Present In Your Home? No [email or web address] Information not available 03/23/2024 Do You Have A Humidifier? No Information not available 01/29/2024 Do You Use Insect Repellent Routinely? No Information not available 12/23/2023 [facility] 12/23/2023 Do You Have Moisture Problems In Your Home? No Information not available 01/29/2024 What Was The Date Of Your Most Recent Tobacco Screening? 07/08/2024 [email or web address] Information not available 07/08/2024 How Many Children Do You Have? 4 [email or web address] Information not available 03/23/2024 Do You Have Any Pets? Yes 3 Dogs [email or web address] Information not available 03/23/2024 Do You Use Protection During Sex? No Information not available 03/23/2024 What Is Your Relationship Status? Information not available 12/23/2023 Do You Use Your Seat Belt Or Car Seat Routinely? Yes Information not available 12/23/2023 Are You Sexually Active? Yes [email or web address] Information not available 03/23/2024 Do You Have Smoke And Carbon Monoxide Detectors In Your Home? Yes Information not available 12/23/2023 At What Age Did You Start Smoking Tobacco? 9 Information not available 12/23/2023 Are You Passively Exposed To Smoke? No Information not available 12/23/2023 Are There Any Smokers In Your House? No Information not available 12/23/2023 How Much Tobacco Do You Smoke? No Information not available 01/29/2024 What Types Of Sporting Activities Do You Participate In? None [email or web address] Information not available 03/23/2024 Do You Use Sunscreen Routinely? No Information not available 12/23/2023 Have You Recently Traveled Abroad? No Information not available 12/23/2023 Do You Have Any Dietary Restrictions? No Information not available 12/23/2023 Sex: Unknown Functional Status Question Answer Note LastModified by Organizat ion Details LastModified Time Do you use any illicit or recreational drugs? No Information not available 12/23/2023 Do you or have you ever used any other forms of tobacco or nicotine? No Information not available 12/23/2023 What is your level of alcohol consumption? None Information not available 12/23/2023 Are you currently employed? No Disability Information not available 12/23/2023 Have you been exposed to chemicals or toxins? Yes Information not available 01/29/2024 What is your exercise level? None [email or web address] Information not available 03/23/2024 Mental Status Question Answer Note LastModified by Organization D etails LastModified Time Do you feel stressed (tense, restless, nervous, or anxious, or unable to sleep at night)? [id number] Information not available 12/23/2023 Family History Relationship Description Onset Age of this Age Resolved Age Notes LastModified by Organization Details LastModified Time Mother Asthma [email or web address] Not available 12/23/2023 11:29:40 Mother Chronic obstructive pulmonary disease [email or web address] Not available 2023 14:37:55 Mother Heart disease [email or web address] Not available 2023 11:30:22 Father Malignant neoplasm of lung [email or web address] Not available 2023 14:37:55 Maternal Uncle Heart disease [email or web address] Not available 2023 10:28:33 Sister Alcoholism [email or web address] Not availabl e 03/03/2024 14:37:55 Medical History Condition Response ARTHRITIS Y USE OF BLOOD THINNERS Y ASTHMA Y HEPATITIS / LIVER DISEASE Y SKIN PROBLEMS Y OTHER # 1 Y LUNG DISEASE/DISORDER Y HEART ARRHYTHMIA Y HAVE YOU BEEN HOSPITALIZED OR SEEN IN [facility] ER IN THE PAST YEAR ? Y HIGH CHOLESTEROL / HYPERLIPIDEMIA Y Past Encounters Encounter ID Performer Location Encounter Start Date Encounter Closed Date Diagnosis/Indication Diagnosis SNOMED-CT Code Diagnosis ICD10 Code Diagnosis IMO Codes Diagnosis Note [id number] Nish han MD [facility] [address] [place] [address] 12/23/2023 11:11:54 12/23/2023 12:11:01 Atrial fibrillation 24317215 I48.91 Osteoarthritis 068783892 M19.90 Chronic ob structive pulmonary disease 26696396 J44.9 Hyperlipidemia 98106864 E78.5 Essential hypertension 56937888 I10 Hyperglycemia 11182995 R 73.9 Vitamin D deficiency 347 55616 E55.9 Screening for malignant neoplasm of prostate 746960335 Z12.5 Renewal of prescription 565888679 Z76.0 Screening for malignant neoplasm of colon 753294421 Z12.11 [id number] Ernesto Sharpe MD [facility] [address], [address] [address] 01/13/2024 15:20:23 01/13/2024 16:34:46 Bilateral shoulder joint pain 8455847464 0158959 M25.398 [id number] Joseph Juarez MD [facility] Pulmonolo [facility] [address] [address] 01/29/2024 09:52:19 01/30/2024 08:26:52 Ex-smoker 0262964 Z87.891 F17.218 F17.219 Dyspnea on exertion 6084 5006 R06.09 R05.9 T78.40XA D89.9 [id number] Verónica Alford MD [facility] General Surgery [address] [place] [address] 1 03/03/2024 14:37:39 03/03/2024 15:30:16 Screening for malignant neoplasm of colon 302276560 Z12.11 [id number] Nish han MD [facility] Internal Med [facility] [address] [place] [address] 1 03/23/2024 11:48:21 03/23/2024 12:37:19 Adult health examination 009112579 Z00.00 Screening for disorder 287782804 Z13.9 Hepatitis C screening 41 1132178 Z11.59 Screening for malignant neoplasm of prostate 746262634 Z12.5 Bilateral shoulder joint pain 6200183832 1457968 M25.519 Eczema 40514362 L30.9 Renewal of prescription 480808088 Z76.0 [id number] Verónica Alford MD [facility] General Surgery [address] [place] [address] 1 03/24/2024 14:22:02 03/24/2024 14:54:11 Chronic hepatitis C 979040574 B18.2 [id number] Joseph Juarez MD [facility] [place] [address] 04/22/2024 16:47:40 06/14/2024 09:23:54 Ex-smoker 9741547 Z87.891 F17.218 F17.219 Moderate c hronic obstructive pulmonary disease 910435333 J44.9 J45.40 [id number] Nish han MD [facility] Internal Med [facility] [address] [place] [address] 1 07/08/2024 15:53:41 07/08/2024 16:59:14 Adult health examination 892648403 Z00.00 Moderate c hronic obstructive pulmonary disease 102310605 J44.9 Bilateral shoulder joint pain 0568205618 1661656 M25.519 Chest pain 95582931 R07. 9 [id number] Nish han MD [facility] [address] [facility] [address] [place] [address] 08/25/2024 15:40:04 08/25/2024 16:13:36 Tachycardia 0487006 R00.0 Has appt with cardiology Bilateral shoulder joint pain 9574803179 6822597 M25.519 Moderate c hronic obstructive pulmonary disease 740162207 J44.9 Renewal of prescription 312972459 Z76.0 Essential hypertension 36298414 I10 Acute sinusitis 17399271 J01.90 Health Concerns Section Related Observation LastModified by Organization Detai ls LastModified Time None Recorded Concern Status LastModified by Organization Details LastModified Time None Recorded Advance Directives Directive N: Payers Insurance Date Sequence Insurance Name Policy Number Policy Rae Covered Member ID Rae Member ID Guarantor Name 06/29/2024 2 [facility] (MEDICARE REPLACEMENT/A DVANTAGE - HMO) [id number] Law Walker [id number] Law Walker 07/08/2024 1 [place] Law Walker [id number] Law Walker 06/29/2024 1 [facility] (MEDICARE REPLACEMENT/A DVANTAGE - PPO) [id number] Law Walker [id number] Law Walker 12/06/2024 1 [facility] (MEDICARE REPLACEMENT/A DVANTAGE - PPO) [id number] Law Walker [id number] Law Walker Notes Date Note Type Note Provider Name and Address Organization Details Recorded Time 03/23/2024 text/html Law presents today for his Medicare annual wellness exam. He states that was in the emergency room in [place] a week or so ago due to A-fib. He stated that they shocked his heart to put him in sinus rhythm. He feels better and his animal park code enforcement officer is aware of the ED admission. He states that he had his colonoscopy yesterday. 12/23/2023Eric presents today to establish care as a new patient. Law is a recent transplant from [place]. He states that he was in the ED for shortness of breath. He is also requesting orthopedics for his right shoulder. He is also in need of a tower equipment repairer. Sulema Virk, ORDERING MACHINE OPERATOR [address] [facility] [address], [place], [address], [employer] 03/23/2024 13:54:06 03/24/2024 text/html ROS as noted in the HPI LAW WAS SEEN IN THE OFFICE TODAY FOR HEP C EVALUATION . PT REPORTS THAT HE WAS TREATED WITH INTERFERON AND EPCLUSA IN THE PAST . TODAY LABS SHOW HEP C AB REACTIVE AND HCV SIGNAL 28.7 (H). PT DENIES ARTHRALGIA / FATIGUE /TIREDNESS/ SLEEPING DIFFICULTIES . Verónica Alford MD [address] [facility], [facility] [address], [place], [address], [employer] 03/24/2024 14:48:24 04/22/2024 text/html Primary care/Referring provider: Sulema Virk APRN CC: I stopped a lot of my medications, including montelukast, when I went into atrial fibrillation. Patient is here to go over his ACO management. Initial development of shortness of breath: 2019Duration of shortness of breath: 5 yearsCondition of shortness of breath: stableTiming of shortness of breath: morningFrequency: up to 5 times a dayLimits activities: yesAggravating factors: walking, laying down, summer and winterAlleviating factors: rest Modified [employer] [place] (mMRC) Dyspnea Scale - Grade 2Grade 0 I only get breathless with strenuous exercise .Grade 1 I get short of breath when hurrying on the level or walking up a slight hill .Grade 2 I walk slower than people of the same age on the level because of breathlessness or have to stop for breath when walking at my own pace on the level .Grade 3 I stop for breath after walking about 100 yards or after a few minutes on the level .Grade 4 I am too breathless to leave the house or I am breathless when dressing . Treatment history: Albuterol HFA as needed since 12/2023 [facility] 160/9/4.8 mcg 2 puffs BID since 01/2024 Other symptoms:Drooling: noDysarthria: noNeck pain: noOdynophagia: noDysphagia: noWeak mastication: noFacial weakness: noNasal speech: noProtruding tongue: noProductive cough: noWheezing: yesChest tightness: yesOrthopnea: 3-pillowFrequent throat clearing or swallowing: noPalpitations: noHeartburn: noEdema: no Environmental exposures:Nicotine smoke: 1 ppd 4829-2996 = 45 pack yearsPaint: yesDye: noDust mites: yesMold: noDamp basement: noWood burning stove: noAnimal dander: dogsCockroaches: noPollen: yesArsenic: noAsbestos: noBeryllium: noCadmium: noChromium: noCoal smoke: noDiesel fumes: noNickel: noSilica: noSoot: no EPWORTH SLEEPINESS SCALE (ESS) CHANCE OF DOZING SCORE0 = would never doze1 = slight chance of dozing2 = moderate chance of dozing3 = high chance of dozing SITUATION AND CHANCE OF DOZINGSitting and reading - 2Watching television - 2Sitting inactive in a public place (e.g. a theater or meeting) - 2As a passenger in a car for an hour without a break - 1Lying down to rest in the afternoon when circumstances permit - 0Sitting and talking to someone - 0Sitting quietly after lunch without alcohol - 0In a car, while stopped for a few minutes in the traffic - 0TOTAL SCORE 7Subjectively, patient has a slight chance of dozing. Joseph Juarez MD [address] [place] [address], [place] [address], [place], [address], [place] [facility] [employer] 04/22/2024 18:04:18 07/08/2024 text/html Law presents today for his 3 month follow up. Patient states that he went into Afib in [place] on Friday and went to [facility]. He stated that while he was at the hospital his blood pressure was very high and he was not given anything in the ED. He states that when he was discharged and took another metoprolol and diltiazem. He states that by the time that he got back to [place], he was feeling better. 03/23/2024Eric presents today for his Medicare annual wellness exam. He states that was in the emergency room in [place] a week or so ago due to A-fib. He stated that they shocked his heart to put him in sinus rhythm. He feels better and his animal park code enforcement officer is aware of the ED admission. He states that he had his colonoscopy yesterday. 12/23/2023Law presents today to establish care as a new patient. Law is a recent transplant from [place]. He states that he was in the ED for shortness of breath. He is also requesting orthopedics for his right shoulder. He is also in need of a tower equipment repairer. Sulema Virk APRN [address] [facility], [address], [place], [address], [employer] [facility] [employer] 07/08/2024 16:50:12 08/25/2024 text/html Law presents today for 3 month follow up. He states he is having problems sleeping due to bilateral shoulder pain. He also states that he has been having some greenish colored nasal drainage. He states that it takes some time in the morning to clear out his sinus passages. He states that he will be seeing the heart doctor after this appointment. 07/14/2024Law presents today for his 3 month follow up. Patient states that he went into Afib in [place] on Friday and went to [facility]. He stated that while he was at the hospital his blood pressure was very high and he was not given anything in the ED. He states that when he was discharged and took another metoprolol and diltiazem. He states that by the time that he got back to [place], he was feeling better. 03/23/2024Law presents today for his Medicare annual wellness exam. He states that was in the emergency room in [place] a week or so ago due to A-fib. He stated that they shocked his heart to put him in sinus rhythm. He feels better and his animal park code enforcement officer is aware of the ED admission. He states that he had his colonoscopy yesterday. 12/23/2023Law presents today to establish care as a new patient. Law is a recent transplant from [place]. He states that he was in the ED for shortness of breath. He is also requesting orthopedics for his right shoulder. He is also in need of a tower equipment repairer. Sulema Virk APRN [address], [address], [place], [address], [employer] [facility] 08/25/2024 16:13:08
[2025-04-06 20:25] VITALS: BP 137/87; PULSE 87; RESP 22; TEMP 37.1; O2SAT 98
--- OUTSIDE RECORDS SUMMARY | 2025-04-06 20:27 | XMS_ITS | Clinical Summary ---
Author Organization [facility] Address [address] [place] [address] Care Team Providers Care Beekeeper Name Role Phone No, Physician Primary Care Provider [phone] Allergies No known active allergies Medications triamcinolone [...] plaque 07/01/2022 Overview (08/26/2024): CT coronary arteries ([facility]): 04/10/2022 - calcium score = 723, non- [...] ATRIAL FIBRILLATION (A-FIB) VIA PULMONARY VEIN ISOLATION [id number]; Surgeon: Rita Awad MD; Location: [facility]; Service: Cardiovascular; Laterality: N/A; Medical History [...] Hepatitis C Screening Completed 10/10/2021 Insurance IDPA [facility] MEDICARE [facility] Address: [address] [address] [place] [address] MEDICARE ADVANTAGE IDPA Advance Directives For more information, please contact: [phone] * Full Code (Latest Code Status on File) Date Activated Date Inactivated Comments 10/27/2024 7:19 AM 10/27/2024 2:10 PM Care Teams Beekeeper Relationship Specialty Start Date End Date No, Physician PCP - General 12/13/23
--- OUTSIDE RECORDS SUMMARY | 2025-04-06 20:27 | XMS_ITS | Clinical Summary ---
Author Organization [facility] Address [address] [place] [address] Care Team Providers Care Awning Finisher Name Role Phone Unavailable Primary Care Provider [...]
--- OUTSIDE RECORDS SUMMARY | 2025-04-06 20:27 | XMS_ITS | Clinical Summary ---
Author Organization [facility] [employer] Address [address] [place] [address] Care Team Providers Care Bread Dumper Name Role Phone Provider, No Pcp Primary Care Provider Unavailab le Source Comments [facility] [employer],non-owned Affiliates and Associated Physician Practices is amultiple site organization consisting of ambulatory clinics and hospital sitesin [place], [place], [place] and [place]. This disclosure is being madepursuant to the Care Everywhere program and may not contain all information available regarding this patient. 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 RECREATION WORKER Gender Identity Not on file Sexual Orientation Not on file Last Filed Vital Signs Vital Sign Reading Time Taken Comments Blood Pressure 102/66 07/03/2024 11:22 AM RECREATION WORKER Pulse 78 07/03/2024 12:19 PM RECREATION WORKER Temperature 36.3 C (97.3 F) 07/03/2024 11:22 AM RECREATION WORKER Respiratory Rate 19 07/03/2024 12:19 PM RECREATION WORKER Oxygen Saturation 96% 07/03/2024 12:19 PM RECREATION WORKER Inhaled Oxygen Concentration - - Weight 113.4 kg (250 lb) 07/03/2024 11:29 AM RECREATION WORKER Height 177.8 cm (5' 10) 07/03/2024 11:29 AM RECREATION WORKER Body Mass Index 35.87 07/03/2024 11:29 AM RECREATION WORKER Plan of Treatment Health Maintenance Due Date [...] [place] [employer] MANAGED MEDICARE ADV Care Teams Bread Dumper Relationship Specialty Start Date End Date Provider, No Pcp PCP - General 07/03/24
--- OUTSIDE RECORDS SUMMARY | 2025-04-06 20:27 | XMS_ITS | Encounter Summary ---
Author Organization [facility] Healthcare Address [address] [place] [address] Care Team Providers Care Mail Weigher Name Role Phone No, Physician Primary Care Provider [phone] Encounter Details Date Type Department Care Team (Late st Contact Info) Description 11/09/2024 [facility] Post Discharge Follow up phone call [address] [address] Birdie Kendrick Social History Tobacco [...] on filedocumented in this encounter Care Teams Mail Weigher Relationship Specialty Start Date End Date No Physician PCP - General 12/13/23 documented as of this encounter
== END 2025-04-06 20:26 | disposition home or self-care (01) ==
PROVIDERS: Emergency Medicine; Emergency Provider Emergency Medicine; PCP Nurse Practitioner Family
DX: R07.89 Other chest pain (principal); K85.90 Acute pancreatitis without necrosis or infection, unspecified; J44.9 Chronic obstructive pulmonary disease, unspecified; I48.91 Unspecified atrial fibrillation; I45.10 Unspecified right bundle-branch block
CPT/HCPCS: 36415; 71046; 76705; 80053; 83690; 84484; 85025; 85610; 85730; 93005; 94640; 99284